=== PATIENT | male | born 2005 | race Caucasian/White ===

== ENCOUNTER 2024-08-18 16:13 | Emergency (ER) | payer SELFPAY ==
--- NOTE | ~2024-08-18 | CT_ITS ---
CT orbit BI wo con Ordering provider: Sammy Ramos MD History: . right eye trauma decreased visual acuity . Comparison: None. Technique: Thin slice axial CT of the orbits was performed without contrast. Coronal reformatted imag es were also obtained. Radiation reduction technique utilized The dose-length product was 235.18 mGy-cm. FINDINGS: PARANASAL SINUSES: Well aerated. BONES: No facial fracture. ORBITS AND SUPERFICIAL SOFT TISSUES: The optic globes and orbits are normal. The superficial soft tis sues shows minimal soft tissue swelling anterior to the right orbit. VISUALIZED MASTOIDS: Well aerated. IMPRESSION: NO ORBITAL FRACTURE IDENTIFIED. No definite intraorbital abnormality seen. Reviewed, dictated and finalized at location A.
[2024-08-18 16:14] VITALS: BP 134/83; PULSE 80; RESP 18; TEMP 37.1; O2SAT 97
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
[2024-08-18] MEDS: FLUORESCEIN SOD 1 MG/STRIP EACH EYE (16:45)
[2024-08-18] MEDS: TETRACAINE HCL 0.5% OPHTH SOLN 4 ML BTL 1 DROP EACH EYE (16:46)
--- NOTE | 2024-08-18 16:46 | PC.NURSE ---
Medications given to ERP to administer when he performs eye exam.
[2024-08-18] MEDS: DACRIOSE EYE IRRIGATION 118 ML BOTTLE 60 ML RIGHT EYE (17:45)
[2024-08-18 18:50] VITALS: BP 118/72; PULSE 67; RESP 20; TEMP 36.6; O2SAT 97
== END 2024-08-18 19:03 | disposition home or self-care (01) ==
PROVIDERS: Emergency Provider Emergency Medicine; PCP Family Medicine
DX: S05.11XA Contusion of eyeball and orbital tissues, right eye, initial encounter (principal); W50.0XXA Accidental hit or strike by another person, initial encounter; Y93.72 Activity, wrestling
CPT/HCPCS: 70480; 99284; A9270